=== PATIENT | female | born 1960 | race Caucasian/White ===

== ENCOUNTER 2016-06-02 20:56 | Emergency (ER) | payer MEDICARE, OTHER ==
--- NOTE | 2016-06-02 21:27 | ED Physician Documentation ---
General Adult - HISTORIAN Historian: patient - HPI Stated Complaint: abd pain Chief Complaint: General Adult Additional Information: gen Onset: hours Timing: still present Severity: moderate Further Comments: yes (Pt is a 55 yo female with abd pain and a leanna-umbilical hernia that is the site of the pain, and which pt has been unable to reduce.) - ROS CONST: other (malaise, obesity) EYES/ENT: none CVS/RESP: shortness of breath (chronic) GI/: abdominal pain (umbilical hernia) MS/SKIN/LYMPH: none - PAST HX Past History: asthma, COPD (on 2 L NC home O2 at bedtime), other (pneumonia, bronchitis, hypothyroidism, anxiety, back pain) Surgeries/Procedures: BTL, cholecystectomy, other (tonsillectomy, Loren-en-y.) Allergies/Adverse Reactions: Allergies Allergy/AdvReac Type Severity Reaction Status Date / Time No Known Drug Allergies Allergy Verified 04/14/15 10:04 Home Medications: Ambulatory Orders Medication Instructions Recorded Albuterol Sulfate [Ventolin] 2.5 mg NEB Q4 PRN 04/14/15 Furosemide [Furosemide] 40 mg PO DAILY 04/14/15 Levothyroxine Sodium [Unithroid] 100 mcg PO DAILY 04/14/15 Linaclotide [Linzess] 145 mcg PO DAILY 04/14/15 Lorazepam [Lorazepam] 1 tab PO DAILY 04/14/15 Montelukast Sodium [Singulair] 10 mg PO DAILY 04/14/15 Morphine Sulfate 30 mg PO Q4 04/14/15 Morphine Sulfate [Morphine Sulfate 60 mg PO DAILY 04/14/15 ER] Spironolactone [Aldactone] 25 mg PO DAILY 04/14/15 Tramadol HCl [Ultram] 1 - 2 tab PO Q6 PRN 04/14/15 Buspirone HCl [Buspar] 30 mg PO BID 06/02/16 Fluticasone/Salmeterol [Advair 1 puff INH BID 06/02/16 500-50 Diskus] Mirtazapine [Mirtazapine] 45 mg PO HS 06/02/16 Roflumilast [Daliresp] 500 mg PO D 06/02/16 - SOCIAL HX Smoking History: cigarettes - FAMILY HX Family History: Yes (DM, HTN) - VITAL SIGNS Vital Signs: Vital Signs Temp Pulse Resp BP Pulse Ox 138/74 03/03/16 11:58 - REVIEWED ASSESSMENTS Nursing Assessment Reviewed: Yes Vitals Reviewed: Yes Progress - Progress Progress: Zofran 4 mg IV NS 1 L IVF x 2 Toradol 30 mg IV Blood cx x 1 - pending CT Abd/pelvis w IV contrast: 1. Large umbilical hernia containing inflamed, thick-walled transverse colon raising the possibility of incarceration and strangulation. 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 2. Thoracolumbar spondylosis, L4/L5 fusion, obesity, gastric bypass, cholecystectomy, nonspecific common bile duct dilatation, atherosclerosis, hysterectomy, and possibly appendectomy. Zosyn 3.375 g IV x 1 in ER Transfer to [facility]. Dr. Zuñiga. - EKG/XRAY/CT XRAY: chest (wnl), abdomen ( Moderate right colonic stool, postoperative changes , and lumbar spondylosis.) General Adult Physical Exam - PHYSICAL EXAM GENERAL APPEARANCE: moderate distress EENT: pharynx normal NECK: normal inspection, supple RESPIRATORY: no resp distress, chest non-tender, breath sounds normal (distant breath sounds) CVS: reg rate & rhythm, heart sounds normal ABDOMEN: soft, decreased BS, other (pronounced leanna-umbilical hernia) BACK: normal inspection, no CVA tenderness SKIN: warm/dry, normal color EXTREMITIES: non-tender, normal range of motion NEURO: oriented X3, motor nml, sensation nml Discharge Clincal Impression: Incarcerated ventral hernia Referrals: Eryn Cook MD [Primary Care Provider] - Home Medications: Ambulatory Orders Albuterol Sulfate [Ventolin] 2.5 mg NEB Q4 PRN 04/14/15 Furosemide [Furosemide] 40 mg PO DAILY 04/14/15 Levothyroxine Sodium [Unithroid] 100 mcg PO DAILY 04/14/15 Linaclotide [Linzess] 145 mcg PO DAILY 04/14/15 Lorazepam [Lorazepam] 1 tab PO DAILY 04/14/15 Montelukast Sodium [Singulair] 10 mg PO DAILY 04/14/15 Morphine Sulfate 30 mg PO Q4 04/14/15 Morphine Sulfate [Morphine Sulfate ER] 60 mg PO DAILY 04/14/15 Spironolactone [Aldactone] 25 mg PO DAILY 04/14/15 Tramadol HCl [Ultram] 1 - 2 tab PO Q6 PRN 04/14/15 Buspirone HCl [Buspar] 30 mg PO BID 06/02/16 Fluticasone/Salmeterol [Advair 500-50 Diskus] 1 puff INH BID 06/02/16 Mirtazapine [Mirtazapine] 45 mg PO HS 06/02/16 Roflumilast [Daliresp] 500 mg PO D 06/02/16 Condition: Stable Disposition: 02 XFER SHT-TRM HOSP Decision to Admit: NO Decision Time: 03:13
[2016-06-02] MEDS ORDERED: KETOROLAC TROMETHAMINE 30 MG/1ML VIAL IVP ONE (22:20)
[2016-06-02] MEDS ORDERED: ONDANSETRON HCL/PF 4 MG/ 2ML VIAL IVP ONE (22:20)
[2016-06-02] MEDS ORDERED: 0.9 % SODIUM CHLORIDE 1,000 ML IV ONE ×2 (22:37→23:32)
[2016-06-02] MEDS ORDERED: KETOROLAC TROMETHAMINE 30 MG/1ML VIAL ONE (22:49)
[2016-06-02] MEDS ORDERED: ONDANSETRON HCL/PF 4 MG/ 2ML VIAL ONE (22:49)
[2016-06-02 23:16] LABS: eGFR (African) > 60; eGFR (Non-African) > 60
[2016-06-02 23:29] LABS: MEAN CORPUSCULAR HEMOGLOBIN 25.2 pg (28.0-34.0); MEAN CORPUSCULAR VOLUME 83.4 fl (80.0-100.0)
--- NOTE | 2016-06-03 00:37 | Diagnostic Imaging Report ---
NILS POWER~ [facility] [address] [facility] [address] [place], [place]. [address] ~ ~ ~ ~ Report Submission Date: Jun 02, 2016 10:18:12 PM CDT Patient ~ Study Name: MARILEE COCHRAN ~ Date: Jun 02, 2016 9:41:09 PM CDT ~ Modality Type: CR Gender: F ~ Description: CHEST : 58 ~ Institution: [facility] Physician: NILS POWER ~ ~ ~ ~ Portable chest History: Cough and shortness of breath a Findings: Exam is limited by obesity. The lungs are clear. No pleural effusions are observed. Heart size and pulmonary vascularity are normal. Impression: Obesity. Otherwise normal chest. ~ Electronically signed on Jun 02, 2016 10:18:12 PM CDT by: Gwyn ANGLIN
--- NOTE | 2016-06-03 00:40 | Diagnostic Imaging Report ---
NILS POWER~ [facility] [address] [facility].[address] [address] ~ ~ ~ ~ Report Submission Date: Jun 02, 2016 10:34:46 PM CDT Patient ~ Study Name: MARILEE COCHRAN ~ Date: Jun 02, 2016 9:54:13 PM CDT ~ Modality Type: CR Gender: F ~ Description: ABDOMEN : 58 ~ Institution: [facility] Physician: NILS POWER ~ ~ ~ ~ Supine abdomen History: 1 day of abdominal pain Findings: Multilevel lumbar spondylosis, L4/L5 fusion, left abdominal postoperative changes, and moderate right colonic stool are observed. There is no evidence of bowel obstruction or radiopaque urolithiasis. Impression: Moderate right colonic stool, postoperative changes, and lumbar spondylosis. ~ Electronically signed on Jun 02, 2016 10:34:46 PM CDT by: Gwyn ANGLIN
--- NOTE | 2016-06-03 03:00 | Diagnostic Imaging Report ---
NILS POWER~ [facility] [address] [facility] [address] [place], [place]. [address] ~ ~ ~ ~ Report Submission Date: Jun 03, 2016 2:53:51 AM CDT Patient ~ Study Name: MARILEE COCHRAN ~ Date: Jun 03, 2016 2:26:17 AM CDT ~ Modality Type: CT\SR Gender: F ~ Description: CT ABD W/ CONTRAST : 58 ~ Institution: [facility] Physician: NILS POWER ~ ~ ~ ~ Computed tomography of the abdomen and pelvis with contrast History: Abdominal pain and known umbilical hernia. Leukocytosis. Findings: Transverse abdomen and pelvis sections are obtained after 88 mL intravenous omnipaque. Obesity, gastric bypass, cholecystectomy, common bile duct dilatation, mild atherosclerosis, multilevel thoracolumbar spondylosis, and L4/L5 fusion are observed. A large umbilical hernia contains thick-walled transverse colon with surrounding mesenteric and subcutaneous edema. This suggests incarceration and possibly strangulation. small bowel loops are unremarkable. There is no evidence of appendicitis. Pelvic sections reveal unremarkable bowel loops and urinary bladder. Hysterectomy has been performed. Impression: 1. Large umbilical hernia containing inflamed, thick-walled transverse colon raising the possibility of incarceration and strangulation. 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 2. Thoracolumbar spondylosis, L4/L5 fusion, obesity, gastric bypass, cholecystectomy, nonspecific common bile duct dilatation, atherosclerosis, hysterectomy, and possibly appendectomy. ~ MTDD
[2016-06-03] MEDS ORDERED: PIPERACILLIN SODIUM/TAZOBACTAM 3.375 GM VIAL IV ONE (03:09)
[2016-06-03] MEDS ORDERED: 0.9 % SODIUM CHLORIDE 100 ML IV ONE (03:09)
[2016-06-03] MEDS ORDERED: 0.9 % SODIUM CHLORIDE 1,000 ML IV SCH (03:30)
[2016-06-03 03:37] VITALS: BP 139/57
[2016-06-03] MEDS ORDERED: PIPERACILLIN SODIUM/TAZOBACTAM 3.375 GM in 0.9 % SODIUM CHLORIDE 50 ML IV SCH (06:00)
[2016-06-03 06:32] LABS: MONOCYTES % 2 % (0-11); SEGMENTED NEUTROPHILS % 86 % (39-79)
[2016-06-04 07:09] LABS: APPEARANCE,URINE CLOUDY (CLEAR); COLOR,URINE AMBER (YELLOW); OCCULT BLOOD,URINE NEGATIVE (NEGATIVE); PH URINE 7.5 (5.0 - 8.0); UROBILINOGEN URINE 0.2 Eu (0.2-1.0)
== END 2016-06-03 03:20 | disposition short-term general hospital (02) ==
LOC: ED 20:56
DX: K43.6 Other and unspecified ventral hernia with obstruction, without gangrene (principal)
CPT/HCPCS: 71010; 74000; 74160; 80053; 81002; 83880; 85025; 87040; J1885; J2405; J2543; J7030; Q9966; 96361; 96374; 96375; 99283; 99284; S1016

== ENCOUNTER 2016-07-18 12:57 | Outpatient (CLI) | payer MEDICARE, OTHER ==
[2016-07-18 13:32] LABS: BASOPHILS % 0.5 (0.0-1.5); EOSINOPHILS % 6.9 % (0.0-6.8); MEAN CORPUSCULAR VOLUME 81.4 fl (80.0-100.0); NEUTROPHILS # 4.8 # k/uL (1.4-7.7)
--- NOTE | 2016-07-18 15:26 | Diagnostic Imaging Report ---
BELEN BEACH [facility] [address] [facility] [address] [address] Report Submission Date: Jul 18, 2016 2:53:42 PM CDT Patient Study Name: MARILEE COCHRAN Date: Jul 18, 2016 2:16:56 PM CDT Modality Type: US Gender: F Description: UNILAT LTD STDY EXT VEINS : 58 Institution: [facility] Physician: BELEN BEACH Examination: Ultrasound vain History: Swelling Findings: Sonographic evaluation of the left lower extremity venous system from the groin to the popliteal fossa inclusive. Normal compressibility. No luminal filling defect. Normal waveforms and response to augmentation. No popliteal region fluid collection. Fluid within the calf soft tissue. Impression: No evidence for deep venous thrombosis. Soft tissue edema. Electronically signed on Jul 18, 2016 2:53:42 PM CDT by: Lit ANGLIN
== END 2016-07-18 13:00 ==
LOC: RAD 12:57
PROVIDERS: ATTEND Family Medicine
DX: M79.89 Other specified soft tissue disorders (principal)
CPT/HCPCS: 36415; 85025; 85610; 93971

== ENCOUNTER 2016-08-28 12:12 | Outpatient (CLI) | payer MEDICARE, OTHER | END 2016-08-28 12:13 | LOC: CARD 12:12 | PROVIDERS: ATTEND Internal Medicine Cardiovascular Disease | DX: R01.1 Cardiac murmur, unspecified (principal) | CPT/HCPCS: G0463 ==

== ENCOUNTER 2018-01-15 18:00 | Emergency (ER) | payer MEDICARE, OTHER ==
[2018-01-15] MEDS ORDERED: methylPREDNISolone SOD SUCC 125 MG/2 ML VIAL IVP ONE (18:12)
[2018-01-15] MEDS ORDERED: IPRATROPIUM/ALBUTEROL SULFATE 3 ML AMPUL.NEB NEB ONE (18:12)
[2018-01-15] MEDS ORDERED: diphenhydrAMINE HCL 25 MG TABLET PO ONE (18:18)
--- NOTE | 2018-01-15 18:49 | ED Physician Documentation ---
Dyspnea - HPI Stated Complaint: SOA Chief Complaint: Dyspnea Additional Information: Patient presents to ED with increasing shortness of breath, cough and left lateral rib pain. She has been treated outpatient with Azithromycin/Steroids and Levaquin/Steroids with last dose being 3 days ago. Patient states she feels better until the medicine is complete and then she returns to shortness of breath and coughing. Patient wears 2.5 liters oxygen with sleep. Continues to smoke 1.5 packs cigarettes per day and drink alcohol daily. Onset: days ago (30) Duration: continues in ED Initiating Event: upper respiratory illness Severity: moderate Exacerbated By: coughing Associated Symptoms: chills, chest pain (left lateral ) - ROS CONST: denies: weakness EYES/ENT: denies: sore throat GI/: abdominal pain NEURO/PSYCH: denies: headache MS/SKIN/LYMPH: denies: muscle aches - PAST HX Lung Disease: COPD Cardiac Disease: none PE Risk Factors: none Surgeries/Procedures: none Other History: none Allergies/Adverse Reactions: Allergies Allergy/AdvReac Type Severity Reaction Status Date / Time No Known Drug Allergies Allergy Verified 04/14/15 10:04 Home Medications: Ambulatory Orders Medication Instructions Recorded Albuterol Sulfate [Ventolin] 2.5 mg NEB Q4 PRN 04/14/15 Furosemide 40 mg PO DAILY 04/14/15 Levothyroxine Sodium [Unithroid] 100 mcg PO DAILY 04/14/15 Linaclotide [Linzess] 145 mcg PO DAILY 04/14/15 Lorazepam 1 tab PO DAILY 04/14/15 Montelukast Sodium [Singulair] 10 mg PO DAILY 04/14/15 Morphine Sulfate 30 mg PO Q4 04/14/15 Morphine Sulfate [Morphine Sulfate 60 mg PO DAILY 04/14/15 ER] Spironolactone [Aldactone] 25 mg PO DAILY 04/14/15 Tramadol HCl [Ultram] 1 - 2 tab PO Q6 PRN 04/14/15 Buspirone HCl [Buspar] 30 mg PO BID 06/02/16 Fluticasone/Salmeterol [Advair 1 puff INH BID 06/02/16 500-50 Diskus] Mirtazapine 45 mg PO HS 06/02/16 Roflumilast [Daliresp] 500 mg PO D 06/02/16 Ipratropium/Albuterol Sulfate 3 ml NEB TID #90 ampul.neb 01/15/18 [Duoneb] predniSONE [Deltasone] 20 mg PO DIRECTED #26 tablet 01/15/18 - SOCIAL HX Smoking History: cigarettes, greater than 1 pack/day Alcohol Use: none Drug Use: none - FAMILY HX Family History: none - VITAL SIGNS Vital Signs: Vital Signs Temp Pulse Resp BP Pulse Ox 94 H 30 H 130/75 98 01/15/18 18:00 01/15/18 18:00 01/15/18 18:00 01/15/18 18:00 - REVIEWED ASSESSMENTS Nursing Assessment Reviewed: Yes Vitals Reviewed: Yes Progress - Results/Orders Results/Orders: WBC 13.4, Hgb 15.4, Hct 46.6 Plt 379. Na 137, K 3.5, CO2 31, Glucose 85, BUN 9, Creatinine 0.60, Ca 37, ALT 37, AST 39, Ldgx400, Bili 0.50 BNP 82.2 - EKG/XRAY/CT EKG: NSR Comments: 86 bpm ED Results Lab/Radiology - Radiology Radiology Impressions: Chest two views History: Shortness of breath, smoker, COPD Findings: The lungs are hyperinflated without infiltrate or pleural effusion. Heart size is normal. Osseous structures are intact. Impression: Hyperinflation. Electronically signed on Jan 15, 2018 6:57:18 PM POLICY WRITER TYPIST by: Gwyn Mendiola - Orders Orders: ED Orders Category Date Time Status Place IV Lock 1T Care 01/15/18 18:10 Active CHEST 2VIEW [RAD] Stat Exams 01/15/18 Ordered BLOOD CULTURE Stat Lab 01/15/18 Ordered BNP [NT-proBNP] Stat Lab 01/15/18 Ordered CBC/PLATELET/DIFF Routine Lab 01/15/18 Ordered CMP Routine Lab 01/15/18 Ordered Ipratropium/Albuterol Sulfate [Duoneb] Med 01/15/18 18:12 Discontinued 3 ml NEB NOW ONE diphenhydrAMINE HCL [Benadryl] Med 01/15/18 18:18 Discontinued 50 mg PO NOW ONE methylPREDNISolone SOD SUCC [Solu-MEDROL] Med 01/15/18 18:12 Discontinued 125 mg IVP NOW ONE EKG WITH COMPARISON Stat Ther 01/15/18 Ordered Dyspnea Physical Exam - EXAM General Appearance: no acute distress, alert EENT: DAGMAR Neck: No: lymphadenopathy Respiratory: wheezes (inspiratory/expiratory bilaterally) CVS: reg. rate & rhythm, no murmur Abdomen: non-tender Skin: no rash Extremities: non-tender Neuro/Psych: oriented x3, motor nml Discharge Clincal Impression: Acute exacerbation of chronic obstructive pulmonary disease (COPD) Prescriptions: Ipratropium/Albuterol Sulfate [Duoneb] 3 ml NEB TID #90 ampul.neb predniSONE [Deltasone] 20 mg PO DIRECTED #26 tablet Referrals: Eryn Cook MD [Primary Care Provider] - 2 Days Additional Instructions: 1. Use Duoneb nebulizer treatments instead of Albuterol 2. Use Benedryl at night if breathing/mucus production is worse 3. Wear oxygen all the time. Do NOT smoke with oxygen on. 4. Smoking cessation highly recommended. 5. Follow up with PCP within 1 week. Get a referral to a experience design director for evaluation of Bipap. This would help with CO2 retention therefore reducing shortness of breath. Condition: Stable Disposition: 01 HOME, SELF-CARE Decision to Admit: NO Date of Decison to Admit: 01/15/18 Decision Time: 19:40
[2018-01-15 19:51] VITALS: BP 113/56
--- NOTE | 2018-01-16 03:48 | Diagnostic Imaging Report ---
RUBA LOPEZ [facility] [address] [facility] [address] [place] [address]. [address] Report Submission Date: Jan 15, 2018 6:57:18 PM COSTUMER ASSISTANT Patient Study Name: MARILEE COCHRAN Date: Jan 15, 2018 6:19:19 PM COSTUMER ASSISTANT Modality Type: DX Gender: F Description: CHEST : 58 Institution: [facility] Physician: RUBA LOPEZ Chest two views History: Shortness of breath, smoker, COPD Findings: The lungs are hyperinflated without infiltrate or pleural effusion. Heart size is normal. Osseous structures are intact. Impression: Hyperinflation. Electronically signed on Jan 15, 2018 6:57:18 PM COSTUMER ASSISTANT by: Gwyn ANGLIN
[2018-01-16 07:59] LABS: BASOPHILS % 0.7 (0.0-1.5); EOSINOPHILS % 2.5 % (0.0-6.8); MEAN CORPUSCULAR HEMOGLOBIN 33.4 pg (28.0-34.0); MONOCYTES % 6.2 % (0.0-11.0)
[2018-01-16 08:00] LABS: NEUTROPHILS # 8.8 # k/uL (1.4-7.7)
[2018-01-16 08:02] LABS: eGFR (Non-African) > 60
== END 2018-01-15 19:47 | disposition home or self-care (01) ==
LOC: ED 18:00
DX: J44.1 Chronic obstructive pulmonary disease with (acute) exacerbation (principal); Z72.0 Tobacco use; Z99.81 Dependence on supplemental oxygen
CPT/HCPCS: 36415; 71046; 80053; 83880; 85025; 87040; 93005; 94640; 96374; 99283; 99285; J2930; Q0163; S1016

== ENCOUNTER 2018-04-27 09:44 | Emergency (ER) | payer MEDICARE, OTHER ==
--- NOTE | 2018-04-27 10:05 | ED Physician Documentation ---
General Adult - HISTORIAN Historian: patient - HPI Stated Complaint: left rib pain Chief Complaint: General Adult Additional Information: Patient presents to ED with a 2 week history of left rib pain after falling. Patient reports falling 2 weeks ago and landing on her face onto a carpeted surface. She denies loss of consciousness. She is not on blood thinners. She sustained a left black eye and small nasal abrasion which she states is healing fine and has given her no problems. Her left rib pain, however, has been an issue. Patient reports some shortness of breath due to the pain. Onset: days ago (14) Timing: still present Severity: mild - ROS CONST: denies: fever EYES/ENT: none CVS/RESP: shortness of breath. denies: cough GI/: denies: vomiting, nausea MS/SKIN/LYMPH: none NEURO/PSYCH: denies: headache, dizziness, difficulty walking, difficulty with speech - PAST HX Past History: COPD Other History: none Surgeries/Procedures: cholecystectomy, hysterectomy Allergies/Adverse Reactions: Allergies Allergy/AdvReac Type Severity Reaction Status Date / Time Penicillins Allergy Rash Verified 04/27/18 10:05 Home Medications: Ambulatory Orders Medication Instructions Recorded Levothyroxine Sodium [Unithroid] 100 mcg PO DAILY 04/14/15 Lorazepam 4 mg PO TID PRN 04/14/15 Montelukast Sodium [Singulair] 10 mg PO DAILY 04/14/15 Morphine Sulfate 30 mg PO Q3H PRN 04/14/15 Spironolactone [Aldactone] 25 mg PO DAILY 04/14/15 Fluticasone/Salmeterol [Advair 1 puff INH BID 06/02/16 500-50 Diskus] Roflumilast [Daliresp] 500 mg PO D 06/02/16 Ipratropium/Albuterol Sulfate 3 ml NEB TID #90 ampul.neb 01/15/18 [Duoneb] Bupropion HCl [Wellbutrin Xl] 150 mg PO DAILY 04/27/18 Duloxetine HCl [Cymbalta] 60 mg PO DAILY 04/27/18 - SOCIAL HX Smoking History: cigarettes, greater than 1 pack/day Alcohol Use: none Drug Use: none - FAMILY HX Family History: No - VITAL SIGNS Vital Signs: Vital Signs Temp Pulse Resp BP Pulse Ox 113/56 01/15/18 19:47 - REVIEWED ASSESSMENTS Nursing Assessment Reviewed: Yes Vitals Reviewed: Yes ED Results Lab/Radiology - Radiology Radiology Impressions: Report Submission Date: Apr 27, 2018 10:53:11 AM CDT Patient Study Name: MARILEE COCHRAN Date: Apr 27, 2018 10:19:08 AM CDT Modality Type: CT Gender: F Description: CT CHEST W/O CONTRAST : 58 Institution: [facility] Physician: RUBA LOPEZ CT the chest without contrast Clinical history: Fall with injury last night. Left rib pain. Technique: CT of the chest is performed in contiguous axial slices without the use of contrast. Sagittal and coronal reconstructions were performed by the technologist. Findings: The lungs are free of coalescent infiltrate. There is no pleural effusion or pleural thickening and no pneumothorax. Central airways are patent. Vascular calcification is present in the thoracic aorta with extension into the origins of the great vessels and coronary arteries. There is a healing fracture of the left 5th rib anterolaterally. There is no evidence of acute fracture. Spondylitic changes are seen throughout the thoracic vertebrae. Hepatic steatosis is evident on images through the upper abdomen. There are postoperative changes consistent with prior gastric bypass. Impression: 1. Healing fracture left 5th rib. 2. Vascular calcification. 3. Hepatic steatosis. Electronically signed on Apr 27, 2018 10:53:11 AM CDT by: Garcia Hercules General Adult Physical Exam - PHYSICAL EXAM GENERAL APPEARANCE: no distress EENT: DAGMAR, other (left orbital ecchymosis, small abrasion on bridge of nose) NECK: supple RESPIRATORY: no resp distress, wheezes (scattered bilaterally) CVS: reg rate & rhythm, heart sounds normal ABDOMEN: soft, normal bowel sounds. No: tenderness BACK: normal inspection, no CVA tenderness SKIN: warm/dry, normal color EXTREMITIES: non-tender, no edema NEURO: oriented X3, motor nml Discharge Clincal Impression: Left rib fracture Qualifiers: Encounter type: initial encounter Rib fracture type: single rib Fracture type: closed Qualified Code(s): S22.32XA - Fracture of one rib, left side, initial encounter for closed fracture Referrals: Eryn Cook MD [Primary Care Provider] - 2 Days Additional Instructions: 1. Splint with coughing, deep breathing. 2. Use Lidocaine patches as needed for pain. These can be purchased over the counter at [facility] 3. Take Morphine as previously prescribed by PCP 4. Take 10 deep breaths every hour you are awake, until pain subsides. 5. Follow up PCP within 1 week 6. Return to ER for new or worsening symptoms. Comments: Patient is on a considerable amount of morphine and benzos at home. This is in addition to drinking alcohol daily. Narcotics was not prescribed at discharge due to this. Condition: Stable Disposition: 01 HOME, SELF-CARE Decision to Admit: NO Date of Decison to Admit: 04/27/18 Decision Time: 10:56
--- NOTE | 2018-04-27 11:10 | Diagnostic Imaging Report ---
RUBA LOPEZ [facility] [address] [facility] [address] [place], [place]. [address] Report Submission Date: Apr 27, 2018 10:53:11 AM CDT Patient Study Name: MARILEE COCHRAN Date: Apr 27, 2018 10:19:08 AM CDT Modality Type: CT Gender: F Description: CT CHEST W/O CONTRAST : 58 Institution: [facility] Physician: RUBA LOPEZ CT the chest without contrast Clinical history: Fall with injury last night. Left rib pain. Technique: CT of the chest is performed in contiguous axial slices without the use of contrast. Sagittal and coronal reconstructions were performed by the technologist. Findings: The lungs are free of coalescent infiltrate. There is no pleural effusion or pleural thickening and no pneumothorax. Central airways are patent. Vascular calcification is present in the thoracic aorta with extension into the origins of the great vessels and coronary arteries. There is a healing fracture of the left 5th rib anterolaterally. There is no evidence of acute fracture. Spondylitic changes are seen throughout the thoracic vertebrae. Hepatic steatosis is evident on images through the upper abdomen. There are postoperative changes consistent with prior gastric bypass. Impression: 1. Healing fracture left 5th rib. 2. Vascular calcification. 3. Hepatic steatosis. Electronically signed on Apr 27, 2018 10:53:11 AM CDT by: Garcia ANGLIN
[2018-04-27 12:34] VITALS: BP 147/74
== END 2018-04-27 11:12 | disposition home or self-care (01) ==
LOC: ED 09:44
DX: S22.32XA Fracture of one rib, left side, initial encounter for closed fracture (principal); W19.XXXA Unspecified fall, initial encounter; Y93.9 Activity, unspecified; Y92.9 Unspecified place or not applicable
CPT/HCPCS: 71250; 99283; 99284

== ENCOUNTER 2018-11-25 15:00 | Emergency (ER) | payer MEDICARE, OTHER ==
[2018-11-25] MEDS ORDERED: methylPREDNISolone SOD SUCC 125 MG/2 ML VIAL IVP ONE (15:15)
--- NOTE | 2018-11-25 15:16 | ED Physician Documentation ---
General Adult - HISTORIAN Historian: patient - HPI Stated Complaint: rib pain after fall Chief Complaint: General Adult Additional Information: Patient presents to ED with bilateral rib pain after falling over a baby gate Saturday night. She states the pain is 10/10 with deep inspiration, 8/10 at rest. Patient has COPD and wears oxygen at night 2-3 liters per nasal cannula. She had a breathing treatment about an hour ago. Onset: days ago (3) Timing: still present, worse Severity: moderate - ROS CONST: denies: fever EYES/ENT: denies: nasal congestion CVS/RESP: shortness of breath. denies: chest pain GI/: denies: vomiting, nausea MS/SKIN/LYMPH: none NEURO/PSYCH: denies: headache - PAST HX Past History: COPD Other History: none Surgeries/Procedures: none Allergies/Adverse Reactions: Allergies Allergy/AdvReac Type Severity Reaction Status Date / Time Penicillins Allergy Rash Verified 11/25/18 15:20 Home Medications: Ambulatory Orders Medication Instructions Recorded Lorazepam 4 mg PO TID PRN 04/14/15 Montelukast Sodium [Singulair] 10 mg PO DAILY 04/14/15 Morphine Sulfate 30 mg PO Q3H PRN 04/14/15 Spironolactone [Aldactone] 25 mg PO DAILY 04/14/15 Roflumilast [Daliresp] 500 mg PO D 06/02/16 Ipratropium/Albuterol Sulfate 3 ml NEB TID #90 ampul.neb 01/15/18 [Duoneb] Bupropion HCl [Wellbutrin Xl] 150 mg PO DAILY 04/27/18 Duloxetine HCl [Cymbalta] 60 mg PO DAILY 04/27/18 Furosemide [Lasix] 1 tab PO DAILY 11/25/18 Methylprednisolone [Medrol] 4 mg PO DIRECTED #1 tab.ds.pk 11/25/18 - SOCIAL HX Smoking History: cigarettes Alcohol Use: none Drug Use: none - FAMILY HX Family History: No - VITAL SIGNS Vital Signs: Vital Signs Temp Pulse Resp BP Pulse Ox 147/74 04/27/18 11:12 - REVIEWED ASSESSMENTS Nursing Assessment Reviewed: Yes Vitals Reviewed: Yes ED Results Lab/Radiology - Radiology Radiology Impressions: Report Submission Date: Nov 25, 2018 3:44:16 PM CDT Patient Study Name: MARILEE COCHRAN Date: Nov 25, 2018 3:17:31 PM CDT Modality Type: DX Gender: F Description: CHEST 2VIEW : 58 Institution: [facility] Physician: RUBA LEONE Exam: Chest two views. History: Cough. The examination is compared to study dated January 15, 2018. Lung john are well aerated without gabbi consolidation or effusion. Heart and mediastinal contour are normal. No bony abnormalities are identified. Impression: No gabbi consolidation or effusion. Electronically signed on Nov 25, 2018 3:44:16 PM CDT by: Jeffrey Powers - Orders Orders: ED Orders Category Date Time Status CHEST 2VIEW [RAD] Stat Exams 11/25/18 Ordered methylPREDNISolone SOD SUCC [SOLU-Medrol] Med 11/25/18 15:15 Once 125 mg IVP NOW ONE General Adult Physical Exam - PHYSICAL EXAM GENERAL APPEARANCE: no distress EENT: DAGMAR NECK: supple RESPIRATORY: no resp distress, chest non-tender, wheezes (wheezing inspiratory/expiratory bilaterally) CVS: reg rate & rhythm, heart sounds normal ABDOMEN: soft, non-tender BACK: normal inspection SKIN: warm/dry EXTREMITIES: edema (+1 lower extremity edema bilaterally to knee) NEURO: oriented X3, mood/affect nml Discharge Clincal Impression: Musculoskeletal pain Prescriptions: Methylprednisolone [Medrol] 4 mg PO DIRECTED #1 tab.ds.pk Referrals: Eryn Cook MD [Primary Care Provider] - 2 Days Additional Instructions: 1. Start Medrol dose pack tomorrow, take as directed 2. Take Morphine for pain as previously prescribed 3. Smoking cessation recommended 4. Take 5 deep breaths every hour you are awake until pain resolves to prevent pneumonia 5. Follow up with PCP within 1 week 6. Return to ER for new or worsening symptoms. Condition: Stable Disposition: 01 HOME, SELF-CARE Decision to Admit: NO Date of Decison to Admit: 11/25/18 Decision Time: 15:52
[2018-11-25 15:19] VITALS: BP 136/76
[2018-11-25] MEDS ORDERED: IPRATROPIUM/ALBUTEROL SULFATE 3 ML AMPUL.NEB NEB ONE (15:19)
[2018-11-25] MEDS ORDERED: methylPREDNISolone SOD SUCC 125 MG/2 ML VIAL IM ONE (15:24)
--- NOTE | 2018-11-25 15:47 | Diagnostic Imaging Report ---
PATIENT MR#: [id number] PATIENT PATIENT NAME: MARILEE COCHRAN DATE OF : 1960 REFERRING PHYSICIAN: Hollie Coyne EXAM DATE: 11/25/2018 ACCESSION NUMBER: [id number] EXAM DESCRIPTION: CHEST 2VIEW Exam: Chest two views. History: Cough. The examination is compared to study dated January 15, 2018. Lung john are well aerated without gabbi consolidation or effusion. Heart and mediastinal contour are normal. No bony abnormalities are identified. Impression: No gabbi consolidation or effusion. Read by: Dr. Jeffrey Barajas Transcribed by: Transcribed Date: Electronically signed by: Dr. Jeffrey Barajas Date signed: 11/25/2018 3:46:30 PM
[2018-11-25] MEDS ORDERED: KETOROLAC TROMETHAMINE 60 MG/2 ML VIAL IM ONE (15:59)
== END 2018-11-25 16:05 | disposition home or self-care (01) ==
LOC: ED 15:00
DX: M79.18 Myalgia, other site (principal); F17.210 Nicotine dependence, cigarettes, uncomplicated
CPT/HCPCS: 71046; 94640; 96372; 96374; 99284; J1885; J2930

== ENCOUNTER 2019-01-20 13:55 | Outpatient (CLI) | payer MEDICARE, OTHER ==
--- NOTE | 2019-01-20 14:48 | Diagnostic Imaging Report ---
PATIENT MR#: [id number] PATIENT PATIENT NAME: MARILEE COCHRAN DATE OF : 1960 REFERRING PHYSICIAN: Steph Sinclair EXAM DATE: 01/20/2019 ACCESSION NUMBER: [id number] EXAM DESCRIPTION: US U OR L EXT VEINS UNILAT UNILATERAL RIGHT LOWER EXTREMITY VENOUS DUPLEX History: Edema in the right leg Duplex and color flow imaging was performed through the right lower extremity femoral-popliteal venou s system revealing normal compressibility and normal augmentation response throughout. No evidence for deep venous thro mbosis. There is edema within the subcutaneous tissues along the right calf IMPRESSION: NO EVIDENCE FOR DEEP VENOUS THROMBOSIS. EDEMA/CELLULITIS IS PRESENT WITHIN THE SUBCUTANEOUS TISSUES ALONG THE RIGHT CALF Read by: Dr. Allyson Whatley Transcribed by: Transcribed Date: Electronically signed by: Dr. Allyson Whatley Date signed: 01/20/2019 2:47:52 PM
== END 2019-01-20 14:05 ==
LOC: RAD 13:55
PROVIDERS: ATTEND Nurse Practitioner Family
DX: I87.2 Venous insufficiency (chronic) (peripheral) (principal); L03.115 Cellulitis of right lower limb
CPT/HCPCS: 93971

== ENCOUNTER 2019-02-05 09:01 | Outpatient (CLI) | payer MEDICARE, OTHER ==
--- NOTE | 2019-02-05 09:56 | Diagnostic Imaging Report ---
PATIENT MR#: [id number] PATIENT PATIENT NAME: MARILEE COCHRAN DATE OF : 1960 REFERRING PHYSICIAN: Steph Sinclair EXAM DATE: 02/05/2019 ACCESSION NUMBER: [id number] EXAM DESCRIPTION: US ABDOMEN LIMITED Exam: Abdominal ultrasound limited. History: Elevated LFTs. Real-time grayscale imaging of the right upper quadrant is performed. The gallbladder is surgically absent. The examination is otherwise compromised due to patient's larg e body habitus. The common bile duct is not visualized. The pancreas is not well seen. The liver is described as fa tty. No ascites or other abdominal mass in the right upper quadrant is noted. Impression: Previous cholecystectomy. Compromised examination due to the patient's large body habitus. Fatty replacement of the normal liver parenchyma. No ascites is detected on this study. Read by: Dr. Jeffrey Barajas Transcribed by: Transcribed Date: Electronically signed by: Dr. Jeffrey Barajas Date signed: 02/05/2019 9:55:06 AM
== END 2019-02-05 09:09 ==
LOC: RAD 09:01
PROVIDERS: ATTEND Nurse Practitioner Family
DX: R94.5 Abnormal results of liver function studies (principal)